=== PATIENT | female | born 1980 | race Caucasian/White ===

== ENCOUNTER 2016-11-23 19:51 | Emergency (ER) | payer OTHER ==
[2016-11-23] MEDS ORDERED: Reglan 10 MG/2 ML IV ONE (20:18)
[2016-11-23] MEDS ORDERED: BENADRYL 50 MG/ML IV ONE ×2 (20:18→21:38)
[2016-11-23] MEDS ORDERED: Sodium Chloride 0.9% 1000 ML 1,000 ML IV STA (20:18)
[2016-11-23] MEDS ORDERED: TORAdol 30 mg Injection IV ONE (20:18)
[2016-11-23 20:33] LABS: VBG CARBOXYHEMOGLOBIN 5.2 % T HGB (0.0-6.9); VBG HCO3- 27.8 meq/L (22-28); VBG HEMOGLOBIN 14.1; VBG O2 SATURATION 66.7 (95-100); VBG POTASSIUM 3.7 (3.5-5.1); VBG pH 7.38 (7.32-7.42)
[2016-11-23 20:36] LABS: BASOPHIL % 0.6 % (0.0-0.4); Eosinophil % 1.5 % (0.00-5.0); Granulocytes % 67.8 % (36.0-66.0); Lymphocytes % 25.3 % (24.0-44.0); Mean Cell Volume 95.6 fl (78-100); Mean Corpuscular Hemoglobin 32.3 pg (26-32); Mean Platelet Volume 10.2 fl (6-9.5); Monocytes % 4.8 % (0.0-12.0); Platelet Count 261 K/mm3 (150-450); Red Blood Count 4.31 M/mm3 (4.1-5.4); Red Cell Distribution Width 12.6 % (11.5-14.0); White Blood Count 10.7 K/mm3 (4.0-10.5)
[2016-11-23] MEDS ORDERED: Sodium Chloride 0.9% 1000 ML 1,000 ML ONE (20:41)
[2016-11-23] MEDS ORDERED: BENADRYL 50 MG/ML ONE ×2 (20:41→21:43)
[2016-11-23] MEDS ORDERED: TORAdol 30 mg Injection ONE (20:41)
[2016-11-23] MEDS ORDERED: Reglan 10 MG/2 ML ONE (20:41)
[2016-11-23 20:59] LABS: ALKALINE PHOSPHATASE 64 U/L (46-116); ANION GAP 14.6 MEQ/L (5-15); BILIRUBIN,TOTAL 0.2 mg/dL (0.2-1.0); BLOOD UREA NITROGEN 18 mg/dL (9-20); CHLORIDE 104 mEq/L (98-107); Carbon Dioxide 26.5 mEq/L (21-32); Glucose 87 MG/DL (70-110); Potassium 3.8 mEq/L (3.5-5.1); SGOT/AST 52 U/L (15-37); SGPT/ALT 76 U/L (12-78); SODIUM 141 mEq/L (136-145); Total Protein 7.8 gm/dL (6.4-8.2)
[2016-11-23 21:00] LABS: TROPONIN < 0.017 ng/ml (0.000-0.056)
--- NOTE | 2016-11-23 21:31 | ERPHSYRPT ---
- History of Present Illness Time Seen by Provider: 11/23/16 20:08 Source: patient Patient Subjective Stated Complaint: reports migrain headache with blurred vision et photophobia since 2199 yesterday - reports onset left-sided CP since today with nausea and vomiting x a few episodes Triage Nursing Assessment: ambulatory to treatment area - steady gait - moves all extremities with equal strength. alert/oriented - tearful affect. skin flushed/dry - no rash/injury. resps easy - non-labored Physician History: CC: headache Hx: 36 y/o patient. She recently moved here from [place]. She had headache yesterday all over her head. Some visual problems reading her text messages yesterday. Today had some left sided headache which resolved since 2PM. She had some nausea and vomiting today. Around 3PM she had some sharp shooting left chest pains last under 30 seconds. She felt anxious. She had some numbness in the right side of her body which also has resolved. She felt a little confused at home for a while today. She took APAP. Now does not feel bad but her family wanted her to come to ER. She reports prior headaches about twice a year. ALL: None MEds: None Social: smoker LMP 2006 hysterectomy Timing/Duration: yesterday Severity: moderate Allergies/Adverse Reactions: No Known Drug Allergies Allergy (Unverified 11/23/16 20:01) Home Medications: No Reportable Medications [No Reported Medications] 11/23/16 [History] Hx Tetanus, Diphtheria Vaccination/Date Given: No Hx Influenza Vaccination/Date Given: No Hx Pneumococcal Vaccination/Date Given: No Immunizations Up to Date: Yes - Review of Systems Constitutional: No Fever, No Chills Eyes: Vision Changes Ears, Nose, & Throat: No Symptoms Respiratory: No Cough, No Dyspnea Cardiac: Chest Pain (sharp short shooting), No Edema, No Palpitations, No Syncope Abdominal/Gastrointestinal: Nausea, Vomiting, No Abdominal Pain, No Diarrhea Genitourinary Symptoms: No Dysuria Musculoskeletal: No Back Pain, No Neck Pain, No Injury Skin: No Rash Neurological: Headache, Parasthesia (right side resolved), No Focal Weakness All Other Systems: Reviewed and Negative - Past Medical History Pertinent Past Medical History: No (healthy) - Past Surgical History Past Surgical History: Yes Female Surgical History: Hysterectomy - Social History Smoking Status: Never smoker Exposure to second hand smoke: No Drug Use: none Patient Lives Alone: No - Female History Hx Last Menstrual Period: n/a - Nursing Vital Signs Nursing Vital Signs: Initial Vital Signs Temperature 98.8 F Temperature Source Oral Pulse Rate [] 72 Pulse Rate 66 Respiratory Rate 16 Blood Pressure [] 139/73 Pain Intensity 2 - Physical Exam General Appearance: alert Eye Exam: PERRL/EOMI Ears, Nose, Throat Exam: normal ENT inspection, moist mucous membranes Neck Exam: normal inspection, non-tender, supple, No meningismus Respiratory Exam: normal breath sounds, lungs clear Cardiovascular Exam: regular rate/rhythm, No murmur Gastrointestinal/Abdomen Exam: soft, No tenderness, No distention, No mass, No guarding Back Exam: normal inspection, normal range of motion Extremity Exam: normal inspection, normal range of motion Neurologic Exam: alert, oriented x 3, cooperative, content assistant II-XII nml as tested, sensation nml, No motor deficits Skin Exam: warm, dry, No rash SpO2 Interpretation: normal SpO2: 98 Oxygen Delivery: Room Air - Course Nursing assessment & vital signs reviewed: Yes EKG Interpreted by Me: RATE (63), Sinus Rhythm, NORMAL AXIS, NORMAL INTERVALS ( QTc 412), NORMAL QRS, NORMAL ST-T - Radiology Exams cxr X-ray Interpretation: Reviewed by me, Negative - CT Exams head CT Interpretation: Negative, Tele-radiologist Report Ordered Tests: Active Orders 24 hr Category Date Time Status Clean Catch Urine Specimen STAT Care 11/23/16 20:18 Active EKG-ER Only STAT Care 11/23/16 20:18 Completed IV Insertion STAT Care 11/23/16 20:18 Active CHEST 2 VIEWS (PA AND LAT) Stat Exams 11/23/16 20:18 Taken HEAD WITHOUT CONTRAST [CT] Stat Exams 11/23/16 20:19 Taken CBC W DIFF Stat Lab 11/23/16 20:29 Completed CMP Stat Lab 11/23/16 20:29 Completed TROPONIN Stat Lab 11/23/16 20:29 Completed UA Stat Lab 11/23/16 21:47 Completed Urine Triage Profile Stat Lab 11/23/16 21:47 Completed VENOUS BLOOD GAS Urgent Lab 11/23/16 20:29 Completed Medication Summary Generic Name Dose Route Start Last Admin Trade Name Freq PRN Reason Stop Dose Admin Magnesium Sulfate/Dextrose 100 mls @ 100 mls/hr 11/23/16 21:45 11/23/16 21:46 Magnesium 1 Gm / 100 Ml D5w IV 11/23/16 23:44 100 mls/hr Q1H AUBREY Administration Discontinued Medications Generic Name Dose Route Start Last Admin Trade Name Alana PRN Reason Stop Dose Admin Diphenhydramine HCl 25 mg 11/23/16 20:18 11/23/16 21:06 Benadryl 50 Mg/Ml IV 11/23/16 20:19 25 mg STAT ONE Administration Diphenhydramine HCl Confirm 11/23/16 20:41 Benadryl 50 Mg/Ml Administered 11/23/16 20:42 Dose 50 mg .ROUTE .STK-MED ONE Diphenhydramine HCl 25 mg 11/23/16 21:38 11/23/16 21:45 Benadryl 50 Mg/Ml IV 11/23/16 21:39 25 mg STAT ONE Administration Diphenhydramine HCl Confirm 11/23/16 21:43 Benadryl 50 Mg/Ml Administered 11/23/16 21:44 Dose 50 mg .ROUTE .STK-MED ONE Sodium Chloride 1,000 mls @ 999 mls/hr 11/23/16 20:18 11/23/16 21:10 Sodium Chloride 0.9% 1000 Ml IV 11/23/16 21:18 999 mls/hr .Q1H1M STA Administration Sodium Chloride Confirm 11/23/16 20:41 Sodium Chloride 0.9% 1000 Ml Administered 11/23/16 20:42 Dose 1,000 mls @ ud .ROUTE .STK-MED ONE Magnesium Sulfate/Dextrose Confirm 11/23/16 21:44 Magnesium 1 Gm / 100 Ml D5w Administered 11/23/16 21:45 Dose 200 mls @ ud IV .STK-MED ONE Ketorolac Tromethamine 30 mg 11/23/16 20:18 11/23/16 21:04 Toradol 30 Mg Injection IV 11/23/16 20:19 30 mg STAT ONE Administration Ketorolac Tromethamine Confirm 11/23/16 20:41 Toradol 30 Mg Injection Administered 11/23/16 20:42 Dose 30 mg .ROUTE .STK-MED ONE Metoclopramide HCl 10 mg 11/23/16 20:18 11/23/16 21:05 Reglan 10 Mg/2 Ml IV 11/23/16 20:19 10 mg STAT ONE Administration Metoclopramide HCl Confirm 11/23/16 20:41 Reglan 10 Mg/2 Ml Administered 11/23/16 20:42 Dose 10 mg .ROUTE .STK-MED ONE Olanzapine 5 mg 11/23/16 21:38 11/23/16 21:45 Zyprexa Zydis 5 Mg PO 11/23/16 21:39 5 mg STAT ONE Administration Olanzapine Confirm 11/23/16 21:43 Zyprexa Zydis 5 Mg Administered 11/23/16 21:44 Dose 5 mg PO .STK-MED ONE Lab/Rad Data: Laboratory Result Diagrams 11/23/16 20:29 11/23/16 20:29 Laboratory Results 11/23/16 11/23/16 11/23/16 Range/Units 21:47 21:47 20:29 WBC (4.0-10.5) K/mm3 RBC (4.1-5.4) M/mm3 Hgb (12.0-16.0) gm/dl Hct (35-47) % MCV (78-100) fl MCH (26-32) pg MCHC (32-36) g/dl RDW (11.5-14.0) % Plt Count (150-450) K/mm3 MPV (6-9.5) fl Gran % (36.0-66.0) % Lymphocytes % (24.0-44.0) % Monocytes % (0.0-12.0) % Eosinophils % (0.00-5.0) % Basophils % (0.0-0.4) % Basophils # (0-0.4) VBG pH 7.38 (7.32-7.42) VBG pCO2 at Pat Temp 47 (42-55) mm/Hg VBG pO2 at Pat Temp 33 (25-40) mm/Hg VBG HCO3 27.8 (22-28) meq/L VBG O2 Sat (Riaz) 66.7 L (95-100) VBG Base Excess 2.0 (-2.0-2.0) VBG Hemoglobin 14.1 VBG Carboxyhemoglobin 5.2 (0.0-6.9) % T HGB POC Potassium 3.7 (3.5-5.1) Sodium (136-145) mEq/L Potassium (3.5-5.1) mEq/L Chloride (98-107) mEq/L Carbon Dioxide (21-32) mEq/L Anion Gap (5-15) MEQ/L BUN (9-20) mg/dL Creatinine (0.55-1.30) mg/dl Estimated GFR ML/MIN Glucose (70-110) MG/DL Calcium (8.5-10.1) mg/dL Total Bilirubin (0.2-1.0) mg/dL AST (15-37) U/L ALT (12-78) U/L Alkaline Phosphatase (46-116) U/L Troponin I (0.000-0.056) ng/ml Serum Total Protein (6.4-8.2) gm/dL Albumin (3.4-5.0) g/dL Ur Collection Type CLEAN CATCH Urine Color YELLOW (YELLOW) Urine Appearance CLEAR (CLEAR) Urine pH 6.0 (5-6) Ur Specific [place] 1.025 (1.005-1.025) Urine Protein NEGATIVE (Negative) Urine Glucose (UA) NEGATIVE (NEGATIVE) mg/dL Urine Ketones NEGATIVE (NEGATIVE) Urine Nitrite NEGATIVE (NEGATIVE) Urine Bilirubin NEGATIVE (NEGATIVE) Urine Urobilinogen 0.2 (0-1) mg/dL Urine WBC (Auto) NEGATIVE (NEGATIVE) Urine RBC (Auto) NEGATIVE (0-5) Louis/ul Urine Opiates Level NEG. (NEGATIVE) Ur Methadone NEG. (NEGATIVE) Urine Barbiturates NEG. (NEGATIVE) Ur Phencyclidine (PCP) NEG. (NEGATIVE) Urine Amphetamine NEG. (NEGATIVE) U Benzodiazepine Level NEG. (NEGATIVE) Urine Cocaine NEG. (NEGATIVE) Urine Marijuana (THC) NEG. (NEGATIVE) Specimen Received [id number] 11/23/16 11/23/16 Range/Units 20:29 20:29 WBC 10.7 H (4.0-10.5) K/mm3 RBC 4.31 (4.1-5.4) M/mm3 Hgb 13.9 (12.0-16.0) gm/dl Hct 41.2 (35-47) % MCV 95.6 (78-100) fl MCH 32.3 H (26-32) pg MCHC 33.7 (32-36) g/dl RDW 12.6 (11.5-14.0) % Plt Count 261 (150-450) K/mm3 MPV 10.2 H (6-9.5) fl Gran % 67.8 H (36.0-66.0) % Lymphocytes % 25.3 (24.0-44.0) % Monocytes % 4.8 (0.0-12.0) % Eosinophils % 1.5 (0.00-5.0) % Basophils % 0.6 (0.0-0.4) % Basophils # 0.06 (0-0.4) VBG pH (7.32-7.42) VBG pCO2 at Pat Temp (42-55) mm/Hg VBG pO2 at Pat Temp (25-40) mm/Hg VBG HCO3 (22-28) meq/L VBG O2 Sat (Riaz) (95-100) VBG Base Excess (-2.0-2.0) VBG Hemoglobin VBG Carboxyhemoglobin (0.0-6.9) % T HGB POC Potassium (3.5-5.1) Sodium 141 (136-145) mEq/L Potassium 3.8 (3.5-5.1) mEq/L Chloride 104 (98-107) mEq/L Carbon Dioxide 26.5 (21-32) mEq/L Anion Gap 14.6 (5-15) MEQ/L BUN 18 (9-20) mg/dL Creatinine 0.72 (0.55-1.30) mg/dl Estimated GFR > 60 ML/MIN Glucose 87 (70-110) MG/DL Calcium 9.2 (8.5-10.1) mg/dL Total Bilirubin 0.2 (0.2-1.0) mg/dL AST 52 H (15-37) U/L ALT 76 (12-78) U/L Alkaline Phosphatase 64 (46-116) U/L Troponin I < 0.017 (0.000-0.056) ng/ml Serum Total Protein 7.8 (6.4-8.2) gm/dL Albumin 4.0 (3.4-5.0) g/dL Ur Collection Type Urine Color (YELLOW) Urine Appearance (CLEAR) Urine pH (5-6) Ur Specific [place] (1.005-1.025) Urine Protein (Negative) Urine Glucose (UA) (NEGATIVE) mg/dL Urine Ketones (NEGATIVE) Urine Nitrite (NEGATIVE) Urine Bilirubin (NEGATIVE) Urine Urobilinogen (0-1) mg/dL Urine WBC (Auto) (NEGATIVE) Urine RBC (Auto) (0-5) Louis/ul Urine Opiates Level (NEGATIVE) Ur Methadone (NEGATIVE) Urine Barbiturates (NEGATIVE) Ur Phencyclidine (PCP) (NEGATIVE) Urine Amphetamine (NEGATIVE) U Benzodiazepine Level (NEGATIVE) Urine Cocaine (NEGATIVE) Urine Marijuana (THC) (NEGATIVE) Specimen Received - Progress Progress Note: 11/23/16 21:35 She was medicated. Labs so far and CT and cxr all reassuring. She is lying in the bed with a man and has had some chips. Will give addl meds and check urine. 11/23/16 22:29 Headache improved with mag sulfate, benadryl, and zydis. Neck supple. No fever. She has had prior headaches. Taking po fluids. BP improved. She is not interested in LP. Will release with instructions. Counseled pt/family regarding: lab results, diagnosis, need for follow-up, rad results - Departure Time of Disposition: 22:30 Departure Disposition: Home Clinical Impression: Headache Condition: Stable Critical Care Time: No Referrals: DOCTOR,NO FAMILY [NON-STAFF PHY W/O PRIVILEGES] - Instructions: Headache Additional Instructions: HEADACHE 1. After discharge from the emergency department, you should rest at home in a cool, dark, quiet place for 12-24 hours. 2. If any of the following signs or symptoms are noticed, you should be re- evaluated right away: A. Visual changes B. Stiff Neck C. Change in quality or location of pain D. Fever E. Recurrent vomiting 3. If pain medications were prescribed or given, they may cause drowsiness. No driving tonite and stay with family. Follow up with a family doctor next week. Return for fever, confusion, concerns.
[2016-11-23] MEDS ORDERED: Zyprexa Zydis 5 MG PO ONE ×2 (21:38→21:43)
[2016-11-23] MEDS ORDERED: Magnesium 1 Gm / 100 Ml D5W*** 200 ML IV ONE (21:44)
[2016-11-23] MEDS: Magnesium 1 Gm / 100 Ml D5W*** 100 ML IV SCH ×2 (21:45→21:46)
[2016-11-23 21:48] LABS: COMPLETE URINE MICROSCOPIC? NO; Collection Type CLEAN CATCH
[2016-11-23 22:27] VITALS: BP 139/73; PULSE 66
[2016-11-23 22:31] VITALS: O2SAT 98
--- NOTE | 2016-11-23 22:44 | XRAY ---
Indication: Chest pain. Comparison: None PA/lateral chest demonstrates normal heart, lungs, and bony thorax.
--- NOTE | 2016-11-24 07:20 | XRAY ---
Indication: Migraine headache, blurred vision, photophobia, nausea, and vomiting. Multiple contiguous axial images obtained through the head without contrast. Comparison: None Normal appearing brain parenchyma, ventricles, and bony calvarium. Visualized paranasal sinuses and mastoid air cells are pneumatized and clear. Impression: Normal CT head without contrast exam. Comment: Preliminary interpretation was made by [facility]. No discrepancy. CTDI 69.79
== END 2016-11-23 22:50 | disposition home or self-care (01) ==
LOC: ED 19:51
DX: R51 Headache (principal); R11.2 Nausea with vomiting, unspecified; R07.9 Chest pain, unspecified
CPT/HCPCS: 36000; 36415; 70450; 71020; 80053; 80307; 81002; 82805; 84484; 85025; 93005; 93041; 96360; 96365; 96374; 96375; 96376; 99285; J1200; J1885; J3475

== ENCOUNTER 2016-12-25 08:11 | Inpatient (IN) | payer OTHER ==
[2016-12-25] MEDS ORDERED: Sodium Chloride 0.9% 1000 ML 1,000 ML IV STA ×2 (08:40→09:37)
[2016-12-25] MEDS ORDERED: Hydromorphone 1 mg/ml Ampule IV ONE ×2 (08:40→09:37)
[2016-12-25] MEDS ORDERED: BENADRYL 50 MG/ML IV ONE ×2 (08:40→09:37)
[2016-12-25] MEDS ORDERED: Zofran 4 MG/2 ML VIAL IV ONE (08:44)
--- NOTE | 2016-12-25 08:47 | ERPHSYRPT ---
- History of Present Illness Time Seen by Provider: 12/25/16 08:36 Source: patient, family (boyfriend) Patient Subjective Stated Complaint: right flank pain since yesterday Triage Nursing Assessment: ambulated to room per self, crying and holding back. skin w/d, color normal, resp easy. states has burning with urination Physician History: CC: left flank pain HX: 36 y/o patient with hx of pyelonephritis. She has left flank pain, rather severe. Nausea. Pain since yesterday. Some dark and urine frequency. No hx of stone disease. Prior hysterectomy. Low grade fever. Pain is severe. Timing/Duration: yesterday Severity: severe Allergies/Adverse Reactions: No Known Drug Allergies Allergy (Verified 12/25/16 08:38) Home Medications: No Reportable Medications [No Reported Medications] 11/23/16 [History] Hx Tetanus, Diphtheria Vaccination/Date Given: No Hx Influenza Vaccination/Date Given: No Hx Pneumococcal Vaccination/Date Given: No - Review of Systems Constitutional: Fever, Malaise Eyes: No Symptoms Ears, Nose, & Throat: No Symptoms Respiratory: No Symptoms Cardiac: No Chest Pain Abdominal/Gastrointestinal: Nausea, No Abdominal Pain Genitourinary Symptoms: Dysuria, Frequency, No Skin: No Rash Neurological: No Headache All Other Systems: Reviewed and Negative - Past Medical History Pertinent Past Medical History: Yes (healthy) Female Reproductive Disorders: Endometriosis, Menstrual Problems - Past Surgical History Past Surgical History: Yes Gastrointestinal: Other Female Surgical History: Hysterectomy Other Surgical History: "colon" surgery after endometrosis surgery - Social History Smoking Status: Current every day smoker How long have you smoked: 20 Exposure to second hand smoke: Yes Drug Use: none Patient Lives Alone: No - Nursing Vital Signs Nursing Vital Signs: Initial Vital Signs Temperature 99.6 F Temperature Source Oral Pulse Rate 105 Respiratory Rate 20 Blood Pressure [Right Arm] 128/67 Pain Intensity 10 - Physical Exam General Appearance: alert, other (uncomfortable appearing) Eye Exam: PERRL/EOMI Ears, Nose, Throat Exam: normal ENT inspection, moist mucous membranes Neck Exam: normal inspection, non-tender, supple Respiratory Exam: normal breath sounds, lungs clear Cardiovascular Exam: regular rate/rhythm Gastrointestinal/Abdomen Exam: soft, No tenderness, No distention, No mass, No guarding Back Exam: CVA tenderness (left) Extremity Exam: normal inspection, normal range of motion Neurologic Exam: alert, oriented x 3, cooperative, sensation nml, No motor deficits Skin Exam: warm, dry, No rash SpO2 Interpretation: normal SpO2: 97 Oxygen Delivery: Room Air - Course Nursing assessment & vital signs reviewed: Yes - Radiology Ultrasound Exam renal Ultrasound: tele radiology report (negative kidneys, hepatic angioma) Ordered Tests: Active Orders 24 hr Category Date Time Status Clean Catch Urine Specimen STAT Care 12/25/16 08:36 Active IV Insertion STAT Care 12/25/16 08:40 Active KIDNEY [US] Stat Exams 12/25/16 08:42 Completed BLOOD CULTURE Stat Lab 12/25/16 08:54 Received BMP Stat Lab 12/25/16 08:54 Received CBC W DIFF Stat Lab 12/25/16 08:54 Completed CULTURE,URINE Stat Lab 12/25/16 08:15 Received Lactic Acid Urgent Lab 12/25/16 08:40 Completed UA W/ MICROSCOPIC Stat Lab 12/25/16 08:15 Completed Medication Summary Generic Name Dose Route Start Last Admin Trade Name Freq PRN Reason Stop Dose Admin Aztreonam 100 mls @ 100 mls/hr 12/25/16 09:00 Azactam 1 Gm/100 Ml D5w IV 12/25/16 09:59 STAT ONE Sodium Chloride 1,000 mls @ 999 mls/hr 12/25/16 09:37 Sodium Chloride 0.9% 1000 Ml IV 12/25/16 10:37 .Q1H1M STA Discontinued Medications Generic Name Dose Route Start Last Admin Trade Name Freq PRN Reason Stop Dose Admin Diphenhydramine HCl 25 mg 12/25/16 08:40 12/25/16 09:20 Benadryl 50 Mg/Ml IV 12/25/16 08:41 25 mg STAT ONE Administration Diphenhydramine HCl Confirm 12/25/16 09:13 Benadryl 50 Mg/Ml Administered 12/25/16 09:14 Dose 50 mg .ROUTE .STK-MED ONE Diphenhydramine HCl 25 mg 12/25/16 09:37 Benadryl 50 Mg/Ml IV 12/25/16 09:38 STAT ONE Diphenhydramine HCl Confirm 12/25/16 09:43 Benadryl 50 Mg/Ml Administered 12/25/16 09:44 Dose 50 mg .ROUTE .STK-MED ONE Hydromorphone HCl 1 mg 12/25/16 08:40 12/25/16 09:19 Hydromorphone 1 Mg/Ml Ampule IV 12/25/16 08:41 1 mg STAT ONE Administration Hydromorphone HCl Confirm 12/25/16 09:14 Hydromorphone 1 Mg/Ml Ampule Administered 12/25/16 09:15 Dose 1 mg .ROUTE .STK-MED ONE Hydromorphone HCl 1 mg 12/25/16 09:37 Hydromorphone 1 Mg/Ml Ampule IV 12/25/16 09:38 STAT ONE Hydromorphone HCl Confirm 12/25/16 09:44 Hydromorphone 1 Mg/Ml Ampule Administered 12/25/16 09:45 Dose 1 mg .ROUTE .STK-MED ONE Sodium Chloride 1,000 mls @ 999 mls/hr 12/25/16 08:40 12/25/16 09:19 Sodium Chloride 0.9% 1000 Ml IV 12/25/16 09:40 999 mls/hr .Q1H1M STA Administration Ceftriaxone Sodium/Dextrose 50 mls @ 100 mls/hr 12/25/16 09:00 12/25/16 09:20 Rocephin 1 Gm-D5w 50 Ml Bag IV 12/25/16 09:29 100 mls/hr STAT ONE Administration Sodium Chloride Confirm 12/25/16 09:14 Sodium Chloride 0.9% 1000 Ml Administered 12/25/16 09:15 Dose 1,000 mls @ ud .ROUTE .STK-MED ONE Ceftriaxone Sodium/Dextrose Confirm 12/25/16 09:14 Rocephin 1 Gm-D5w 50 Ml Bag Administered 12/25/16 09:15 Dose 50 mls @ ud IV .STK-MED ONE Ondansetron HCl 4 mg 12/25/16 08:44 12/25/16 09:20 Zofran 4 Mg/2 Ml Vial IV 12/25/16 08:45 4 mg STAT ONE Administration Ondansetron HCl Confirm 12/25/16 09:13 Zofran 4 Mg/2 Ml Vial Administered 12/25/16 09:14 Dose 4 mg .ROUTE .STK-MED ONE Lab/Rad Data: Laboratory Result Diagrams 12/25/16 08:54 Laboratory Results 12/25/16 12/25/16 12/25/16 Range/Units 08:54 08:40 08:15 WBC 22.8 H (4.0-10.5) K/mm3 RBC 4.72 (4.1-5.4) M/mm3 Hgb 15.2 (12.0-16.0) gm/dl Hct 44.1 (35-47) % MCV 93.4 (78-100) fl MCH 32.2 H (26-32) pg MCHC 34.5 (32-36) g/dl RDW 12.6 (11.5-14.0) % Plt Count 278 (150-450) K/mm3 MPV 10.2 H (6-9.5) fl Gran % 87.2 H (36.0-66.0) % Lymphocytes % 7.0 L (24.0-44.0) % Monocytes % 5.4 (0.0-12.0) % Eosinophils % 0.2 (0.00-5.0) % Basophils % 0.2 (0.0-0.4) % Basophils # 0.04 (0-0.4) Lactic Acid 1.5 (0.4-2.0) Ur Collection Type CCMS Urine Color YELLOW (YELLOW) Urine Appearance CLOUDY (CLEAR) Urine pH 6.0 (5-6) Ur Specific [place] 1.015 (1.005-1.025) Urine Protein 100 (Negative) Urine Glucose (UA) NEGATIVE (NEGATIVE) mg/dL Urine Ketones SMALL-15 (NEGATIVE) Urine Nitrite POSITIVE (NEGATIVE) Urine Bilirubin NEGATIVE (NEGATIVE) Urine Urobilinogen 0.2 (0-1) mg/dL Urine WBC (Auto) LARGE (NEGATIVE) Urine RBC (Auto) MODERATE (0-5) Louis/ul Urine Microscopic RBC 15-25 (0-2) /HPF Urine Microscopic WBC >100 (0-5) /HPF Ur Epithelial Cells FEW (FEW) /HPF Urine Bacteria MANY (NEGATIVE) /HPF Specimen Received 0815 12/25/16 - Progress Progress Note: 12/25/16 09:49 The patient has quite a bit of pain. Creat pending as send out machine down. Cultures sent. IVF given. Rocephin and azactam given. Called Dr Bolton (oc) for admission. Sonogram shows no sign of stone disease of abscess. Discussed with .: Hoang Will see patient in: hospital (observation) Counseled pt/family regarding: lab results, diagnosis, need for follow-up, rad results - Departure Time of Disposition: 09:54 Departure Disposition: Observation Clinical Impression: Acute pyelonephritis Condition: Fair Critical Care Time: No
[2016-12-25 08:52] LABS: Collection Type CCMS
[2016-12-25 08:53] LABS: COMPLETE URINE MICROSCOPIC? YES
[2016-12-25] MEDS ORDERED: ROCEPHIN 1 Gm-D5w 50 ml Bag** 50 ML IV ONE ×2 (09:00→09:14)
[2016-12-25] MEDS ORDERED: Azactam 1 GM/100 ML D5W 100 ML IV ONE (09:00)
[2016-12-25 09:05] LABS: BASOPHIL % 0.2 % (0.0-0.4); Eosinophil % 0.2 % (0.00-5.0); Granulocytes % 87.2 % (36.0-66.0); Mean Cell Volume 93.4 fl (78-100); Mean Corpuscular Hemoglobin 32.2 pg (26-32); Mean Platelet Volume 10.2 fl (6-9.5); Monocytes % 5.4 % (0.0-12.0); Platelet Count 278 K/mm3 (150-450); Red Blood Count 4.72 M/mm3 (4.1-5.4); Red Cell Distribution Width 12.6 % (11.5-14.0); White Blood Count 22.8 K/mm3 (4.0-10.5)
[2016-12-25] MEDS ORDERED: Zofran 4 MG/2 ML VIAL ONE (09:13)
[2016-12-25] MEDS ORDERED: BENADRYL 50 MG/ML ONE ×2 (09:13→09:43)
[2016-12-25] MEDS ORDERED: Hydromorphone 1 mg/ml Ampule ONE ×2 (09:14→09:44)
[2016-12-25] MEDS ORDERED: Sodium Chloride 0.9% 1000 ML 1,000 ML ONE ×2 (09:14→10:28)
[2016-12-25 09:38] LABS: Bacteria MANY /HPF (NEGATIVE); Epithelial Cells FEW /HPF (FEW); WBC >100 /HPF (0-5)
--- NOTE | 2016-12-25 09:42 | XRAY ---
Indication: Left flank pain. Two-dimensional renal sonogram performed. Comparison: None Both kidneys normal in reniform shape with normal color perfusion. Right kidney measures 12.1 x 5.1 x 6.2 cm and the left measures 11.3 x 6.3 x 5.5 cm. No suspicious renal mass, hydronephrosis, or perinephric fluid. Images of the urinary bladder unremarkable. Normal right ureteral jet. Left ureteral jet not seen within the allotted exam time. In the posterior right lobe of the liver, there is homogeneous echogenic mass measuring 2.6 cm in greatest dimension favoring hemangioma. Impression: Negative renal sonogram. Incidental hepatic hemangioma.
[2016-12-25] MEDS ORDERED: TYLENOL 325 MG PO PRN (10:58)
[2016-12-25] MEDS: Dextrose 5% -0.45 NaCl 1000 ML 1,000 ML IV SCH (12:30)
[2016-12-25] MEDS: DILAUDID 2 MG INJECTION IV PRN ×3 (13:14→22:12)
[2016-12-25] MEDS: Nicoderm CQ 21 MG TOP SCH (13:14)
--- NOTE | 2016-12-25 13:33 | HP ---
HISTORY OF PRESENT ILLNESS: This is a 36 year-old patient who presented to the emergency department. She reported that she started feeling bad yesterday with aching in her left kidney. She reports that she took Azo but the pain got worse and it was hard for her to move. She reports a history of kidney infections including pyelonephritis. She reports that she has been hospitalized at [facility] in [place], [place] but she thinks this was back in 2008. She also reports being hospitalized in [place] in 2010 but she cannot remember what hospital she was at. She reports that her teeth were chattering and she was sweating but she did not have a thermometer at home to check her temperature. She had some nausea but no vomiting. She also had left upper quadrant pain. She reports that she is feeling better since coming into the hospital. REVIEW OF SYSTEMS: She denies cough, denies rhinorrhea. No rashes. No dizziness. No headache. PAST MEDICAL HISTORY: She reports a history of endometriosis requiring multiple surgeries. PAST SURGICAL HISTORY: She had laser surgery for endometriosis when she was a teenager. She had a benign tumor removed from her armpit. She had a section. She had uterus rupture and then hysterectomy, left ovary removed. She reports there were complications from this surgery and part of her intestine and bladder had to be removed. She also reports she had an appendectomy. MEDICATIONS: [id number] Azo. ALLERGIES: NKDA. SOCIAL HISTORY: She lives with her boyfriend who is a vinyl welder and fabricator and travels with him. She has a son that stays with them as well. She reports smoking one-half to one pack per day of cigarettes and wanting to quit. She occasionally drinks alcohol approximately one drink per day but not every day. She denies any history of alcohol withdrawal. She reports occasional use of marijuana. She reports a history of meth use but not recently. She denies any injected IV drugs, any heroin or cocaine. FAMILY HISTORY: Her mother is living and has a heart murmur. Father is living and has lung disease that requires injections but she is unsure of the exact name of this. PHYSICAL EXAMINATION: VITAL SIGNS: Temperature current 98.8F, temperature max 99.6F, heart rate 60 to 105, respiratory rate 16 to 20, blood pressure 119 to 130 over 61 to 67. Oxygen saturation 93 to 97% on room air. GENERAL: The patient is lying in bed. Teeth chattering and chilling. She is alert and talkative. CVS: She has a regular rate and rhythm. No murmurs, gallops or rubs. CHEST: Clear to auscultation bilaterally. ABDOMEN: She has mild left upper quadrant tenderness with no guarding, no rigidity and normal bowel sounds. She has left costovertebral angle tenderness. No costovertebral angle tenderness on the right. She has a well healed midline scar from just above her umbilicus down towards the pubic area and another scar horizontal from her section. EXTREMITIES: No clubbing, cyanosis or edema. SKIN: Warm, dry and intact. LABORATORY DATA AND TESTS: Her white blood cell count was 22,800 with 87% granulocytes, 7% lymphs. Lactic acid 1.5. UA with greater than 100 white blood cells, 15 to 25 red blood cells and many bacteria. She had small ketones and positive nitrite. Urine culture and blood culture are in lab. BMP was sent out to [facility] and it was not back until after noon. Her creatinine was 0.8, sodium 134, chloride 96. She had a renal ultrasound that was read as negative by the [id number] with incidental hepatic hemangioma. ASSESSMENT AND PLAN: 1) ACUTE LEFT PYELONEPHRITIS: The patient was initially started on ceftriaxone by the emergency room doctor. The patient reports that in the past her urine cultures have grown resistant organisms which make me more concerned along with the fact that she is still chilling so I decided to change her to Meropenem and discontinue aztreonam and ceftriaxone after discussion with the clinical pharmacist, Terrence. Will continue with close monitoring and recheck CBC in the morning and continue with IV fluids. The patient was able to eat all of her lunch without any problems. 2) TOBACCO ABUSE: The patient was counseled that he needs to quit and she was given a nicotine patch while she was here. 3) ILLICIT DRUG USE: The patient was questioned twice and denied any IV drug use as I told her this could change her treatment.
[2016-12-25] MEDS ORDERED: Azactam 1 GM/100 ML D5W 100 ML IV SCH (14:00)
[2016-12-25] MEDS: Zofran 4 MG/2 ML VIAL IV PRN (14:30)
[2016-12-25] MEDS: MERREM 500MG 500 MG in Sodium Chloride 100ML MINI-BAG PLUS 100 ML IV SCH ×2 (14:30→22:14)
[2016-12-26] MEDS: Dextrose 5% -0.45 NaCl 1000 ML 1,000 ML IV SCH ×3 (00:07→22:10)
[2016-12-26] MEDS: DILAUDID 2 MG INJECTION IV PRN ×5 (03:24→19:41)
[2016-12-26] MEDS: MERREM 500MG 500 MG in Sodium Chloride 100ML MINI-BAG PLUS 100 ML IV SCH ×3 (05:45→21:57)
[2016-12-26 05:49] LABS: Mean Cell Volume 96.6 fl (78-100); Mean Platelet Volume 10.8 fl (6-9.5); Platelet Count 201 K/mm3 (150-450); Red Blood Count 3.77 M/mm3 (4.1-5.4); Red Cell Distribution Width 12.8 % (11.5-14.0); White Blood Count 21.8 K/mm3 (4.0-10.5)
[2016-12-26 05:59] LABS: ANION GAP 11.4 MEQ/L (5-15); BLOOD UREA NITROGEN 5 mg/dL (9-20); CHLORIDE 107 mEq/L (98-107); Carbon Dioxide 24.3 mEq/L (21-32); Glucose 128 MG/DL (70-110); Potassium 3.4 mEq/L (3.5-5.1); SODIUM 139 mEq/L (136-145)
[2016-12-26 06:00] LABS: Mean Corpuscular Hemoglobin 32.3 pg (26-32)
--- NOTE | 2016-12-26 08:57 | PCM.NOTE ---
Date and Time: 12/26/16 0852 Subjective Assessment: She reports that her pain seemed to get worse again around 2 am and is still located around her left flank and to her left upper quadrant. She is urinating ok. She hasn't had much appetite because of the pain. She denies diarrhea and has had some constipation. She has not had an appetite. - Review of Systems Constitutional: Fatigue Eyes: No Symptoms Ears, Nose, & Throat: No Symptoms Respiratory: No Symptoms Cardiac: No Symptoms Abdominal/Gastrointestinal: Abdominal Pain, Constipation, Appetite Changes, No Vomiting, No Diarrhea Genitourinary Symptoms: No Symptoms Musculoskeletal: No Symptoms Skin: No Symptoms Objective Exam General Appearance: mild distress, other (tearful) Neurologic Exam: alert, cooperative Skin Exam: normal color, warm, dry, No rash Respiratory Exam: normal breath sounds, No crackles/rales, No rhonchi, No wheezing Cardiovascular Exam: regular rate/rhythm, normal heart sounds, No murmur, No friction rub, No gallop Gastrointestinal/Abdomen Exam: soft, tenderness, other (mild left upper quadrant tenderness. + left costovertebral angle tenderness) Extremity Exam: normal inspection, other (no c/c/e) OBJECTIVE DATA Vital Signs: Vital Signs - 24 hr Temp Pulse Resp BP Pulse Ox 12/26/16 07:17 99.0 F 80 24 135/59 97 12/26/16 04:00 99.2 F 83 17 109/57 96 12/25/16 23:47 98.8 F 82 18 94/54 97 12/25/16 19:48 99.7 F 73 16 104/56 95 12/25/16 15:49 99.7 F 120 H 18 128/62 92 L 12/25/16 11:25 98.8 F 89 16 119/64 97 12/25/16 10:55 97.6 F 60 130/61 12/25/16 10:50 97.6 F 60 18 130/61 93 L 12/25/16 09:55 97 12/25/16 09:35 92 H 18 130/67 97 Pain Assessment - Last Documented Pain Intensity 9 Pain Scale Used 0-10 Pain Scale Intake and Output: Intake & Output 12/24/16 12/25/16 12/26/16 12/27/16 06:59 06:59 06:59 06:59 Intake Total 3447 Output Total 500 Balance 2947 Weight 73.89 kg Lab Results: Lab Results-Last 24 Hours 12/26/16 12/26/16 Range/Units 05:20 05:20 WBC 21.8 H (4.0-10.5) K/mm3 RBC 3.77 L (4.1-5.4) M/mm3 Hgb 12.2 (12.0-16.0) gm/dl Hct 36.4 (35-47) % MCV 96.6 (78-100) fl MCH 32.3 H (26-32) pg MCHC 33.5 (32-36) g/dl RDW 12.8 (11.5-14.0) % Plt Count 201 (150-450) K/mm3 MPV 10.8 H (6-9.5) fl Sodium 139 (136-145) mEq/L Potassium 3.4 L (3.5-5.1) mEq/L Chloride 107 (98-107) mEq/L Carbon Dioxide 24.3 (21-32) mEq/L Anion Gap 11.4 (5-15) MEQ/L BUN 5 L (9-20) mg/dL Creatinine 0.74 (0.55-1.30) mg/dl Estimated GFR > 60 ML/MIN Glucose 128 H (70-110) MG/DL Calcium 8.1 L (8.5-10.1) mg/dL Radiology Exams: Radiology Procedures Category Date Time Status ABDOMEN AND PELVIS W&WO CONTRA [CT] Stat Exams 12/26/16 08:50 Ordered Assessment/Plan (1) Acute pyelonephritis Current Visit: Yes Status: Acute Assessment & Plan: Continue meropenem. Check CT of abd/pelvis with IV contrast. Checking serum test to make sure this is neg but patient did report having had a hysterectomy. Check CBC again in AM. Continue with IV fluids and pain control. We are trying to get records from outside hospitals with old culture results and her urine and blood cultures are pending with no growth to date. Code(s): N10 - ACUTE PYELONEPHRITIS (2) Tobacco abuse Current Visit: Yes Status: Acute Code(s): Z72.0 - TOBACCO USE (3) Illicit drug use Current Visit: Yes Status: Acute Code(s): F19.90 - OTHER PSYCHOACTIVE SUBSTANCE USE, UNSPECIFIED, UNCOMPLICATED
[2016-12-26] MEDS: Colace 100 MG PO SCH ×2 (09:38→21:57)
[2016-12-26] MEDS ORDERED: ROCEPHIN 1 Gm-D5w 50 ml Bag** 50 ML IV SCH (10:00)
[2016-12-26] MEDS ORDERED: PNEUMOVAX 23 IM ONE (10:00)
[2016-12-26] MEDS: Nicoderm CQ 21 MG TOP SCH (11:38)
[2016-12-26] MEDS: Zofran 4 MG/2 ML VIAL IV PRN (12:01)
--- NOTE | 2016-12-26 12:14 | XRAY ---
Indication: Pyelonephritis. Left kidney pain and dysuria. Multiple contiguous axial images obtained through the abdomen and pelvis prior to and following 80 cc Isovue 370 contrast. Oral contrast also given. Comparison: None Lung bases are clear. Heart is not enlarged. Noncontrasted images through the abdomen are negative for pathologic visceral calcifications/calculi. Contrasted stomach and bowel loops appear nonobstructed with mild scattered colonic fecal debris throughout. Distal small bowel resection at the level of the pelvis intact. Previous reported appendectomy and hysterectomy. No free fluid/air. Postcontrast images demonstrates normal visceral enhancement and renal excretion. Minimal left perinephric stranding consistent with known pyelonephritis. No suspicious renal mass, hydronephrosis, or perinephric fluid. There are 2 rounded hypodensities in the right lobe of the liver, largest measuring 2.5 cm, that fill in on delayed imaging favoring hemangiomas. Remaining liver, gallbladder, pancreas, spleen, adrenal glands, kidneys, ureters, and bladder appear unremarkable. Aorta is normal in course and caliber without AAA. Several centimeter/subcentimeter periaortic nodes, none pathologically enlarged. Osseous structures intact. Impression: 1. Negative for pathologic visceral calcifications/calculi. 2. Left perinephric stranding consistent with known pyelonephritis. No renal mass, hydronephrosis, or perinephric fluid. 3. Mild fecal stasis without obstruction. 4. Incidental hepatic hemangiomas. CT DI 22.21
[2016-12-26] MEDS ORDERED: Klor Con 10 MEQ PO ONE (13:03)
[2016-12-27] MEDS: DILAUDID 2 MG INJECTION IV PRN ×3 (00:10→08:37)
[2016-12-27] MEDS: Zofran 4 MG/2 ML VIAL IV PRN ×3 (03:29→17:48)
[2016-12-27 05:36] LABS: BASOPHIL % 0.2 % (0.0-0.4); Granulocytes % 82.8 % (36.0-66.0); Mean Corpuscular Hemoglobin 32.1 pg (26-32); Mean Platelet Volume 10.3 fl (6-9.5); Platelet Count 192 K/mm3 (150-450); Red Blood Count 3.64 M/mm3 (4.1-5.4); Red Cell Distribution Width 12.6 % (11.5-14.0); White Blood Count 11.1 K/mm3 (4.0-10.5)
[2016-12-27] MEDS: MERREM 500MG 500 MG in Sodium Chloride 100ML MINI-BAG PLUS 100 ML IV SCH ×3 (05:41→21:58)
[2016-12-27 05:53] LABS: ANION GAP 12.3 MEQ/L (5-15); BLOOD UREA NITROGEN 3 mg/dL (9-20); CHLORIDE 109 mEq/L (98-107); Carbon Dioxide 24.1 mEq/L (21-32); Glucose 109 MG/DL (70-110); Potassium 3.7 mEq/L (3.5-5.1); SODIUM 142 mEq/L (136-145)
[2016-12-27] MEDS: Colace 100 MG PO SCH ×2 (08:38→21:58)
--- NOTE | 2016-12-27 09:15 | PCM.NOTE ---
Date and Time: 12/27/16909 Subjective Assessment: She continues to have left flank pain that is worse when she moves. She denies any abdominal pain today or any dysuria. She reports some nausea and vomited this AM when she went to the bathroom. - Review of Systems Constitutional: Chills Eyes: No Symptoms Ears, Nose, & Throat: No Symptoms Respiratory: No Symptoms Cardiac: No Symptoms Abdominal/Gastrointestinal: Nausea, Vomiting, Other (left flank pain.) Musculoskeletal: No Symptoms Skin: No Symptoms Psychological: Emotional Lability, Other (States she is sad because she is still having pain.) Objective Exam General Appearance: mild distress, other (tearful) Neurologic Exam: alert, cooperative Skin Exam: normal color, warm, dry, No rash Respiratory Exam: normal breath sounds, lungs clear, No crackles/rales, No rhonchi, No wheezing Cardiovascular Exam: regular rate/rhythm, normal heart sounds, No murmur, No friction rub, No gallop Gastrointestinal/Abdomen Exam: soft, normal bowel sounds, other (+ left costovertebral angle tenderness and right costovertebral angle tenderness), No tenderness, No distention, No mass Extremity Exam: normal inspection, other (no c/c/e) OBJECTIVE DATA Vital Signs: Vital Signs - 24 hr Temp Pulse Resp BP Pulse Ox 12/27/16 07:11 98 F 66 22 116/72 96 12/27/16 04:00 99.2 F 81 17 108/67 95 12/26/16 23:59 98.8 F 84 20 117/72 97 12/26/16 20:00 99.6 F 88 14 129/67 98 12/26/16 16:00 99.0 F 94 H 22 123/76 97 12/26/16 11:43 98.2 F 94 H 22 122/70 98 Pain Assessment - Last Documented Pain Intensity 2 Pain Scale Used 0-10 Pain Scale Intake and Output: Intake & Output 12/25/16 12/26/16 12/27/16 12/28/16 06:59 06:59 06:59 06:59 Intake Total 4903 Output Total 3400 Balance 1503 Lab Results: Lab Results-Last 24 Hours 12/27/16 12/27/16 Range/Units 05:25 05:25 WBC 11.1 H (4.0-10.5) K/mm3 RBC 3.64 L (4.1-5.4) M/mm3 Hgb 11.7 L (12.0-16.0) gm/dl Hct 35.3 (35-47) % MCV 97.0 (78-100) fl MCH 32.1 H (26-32) pg MCHC 33.1 (32-36) g/dl RDW 12.6 (11.5-14.0) % Plt Count 192 (150-450) K/mm3 MPV 10.3 H (6-9.5) fl Gran % 82.8 H (36.0-66.0) % Lymphocytes % 9.0 L (24.0-44.0) % Monocytes % 6.0 (0.0-12.0) % Eosinophils % 2.0 (0.00-5.0) % Basophils % 0.2 (0.0-0.4) % Basophils # 0.02 (0-0.4) Sodium 142 (136-145) mEq/L Potassium 3.7 (3.5-5.1) mEq/L Chloride 109 H (98-107) mEq/L Carbon Dioxide 24.1 (21-32) mEq/L Anion Gap 12.3 (5-15) MEQ/L BUN 3 L (9-20) mg/dL Creatinine 0.67 (0.55-1.30) mg/dl Estimated GFR > 60 ML/MIN Glucose 109 (70-110) MG/DL Calcium 8.1 L (8.5-10.1) mg/dL Assessment/Plan (1) Acute pyelonephritis Current Visit: Yes Status: Acute Assessment & Plan: She continues to have quite a bit of pain. Will stop as needed IV dilaudid and change to a dilaudid [employer] and also schedule tylenol. Continue with meropenem. The outside hospital did not have any old records and the patient thinks the last time she was hospitalized for this was more than 7 years ago. Her urine culture is growing a gram neg jsoe g and ID and sensitivity is pending. Her CT of her abdomen and pelvis did not show any other problems besides the pyelonephritis. Her WBC count is improving. Code(s): N10 - ACUTE PYELONEPHRITIS (2) Tobacco abuse Current Visit: Yes Status: Acute Code(s): Z72.0 - TOBACCO USE (3) Illicit drug use Current Visit: Yes Status: Acute Code(s): F19.90 - OTHER PSYCHOACTIVE SUBSTANCE USE, UNSPECIFIED, UNCOMPLICATED
[2016-12-27] MEDS: DILAUDID 1 MG/1ML PCA IV PRN (11:27)
[2016-12-27] MEDS: Dextrose 5% -0.45 NaCl 1000 ML 1,000 ML IV SCH (11:27)
[2016-12-27] MEDS: Nicoderm CQ 21 MG TOP SCH (13:10)
[2016-12-27] MEDS: TYLENOL 325 MG PO SCH ×3 (17:55→21:57)
[2016-12-28] MEDS: Dextrose 5% -0.45 NaCl 1000 ML 1,000 ML IV SCH ×2 (00:25→17:37)
[2016-12-28] MEDS: TYLENOL 325 MG PO SCH ×6 (03:02→21:55)
[2016-12-28] MEDS: Zofran 4 MG/2 ML VIAL IV PRN (03:05)
[2016-12-28 05:18] LABS: BASOPHIL % 0.2 % (0.0-0.4); Eosinophil % 3.4 % (0.00-5.0); Granulocytes % 70.2 % (36.0-66.0); Lymphocytes % 19.7 % (24.0-44.0); Mean Cell Volume 97.1 fl (78-100); Mean Platelet Volume 10.5 fl (6-9.5); Monocytes % 6.5 % (0.0-12.0); Platelet Count 198 K/mm3 (150-450); Red Blood Count 3.48 M/mm3 (4.1-5.4); Red Cell Distribution Width 12.6 % (11.5-14.0); White Blood Count 6.2 K/mm3 (4.0-10.5)
[2016-12-28] MEDS: MERREM 500MG 500 MG in Sodium Chloride 100ML MINI-BAG PLUS 100 ML IV SCH (05:18)
[2016-12-28 05:19] LABS: Mean Corpuscular Hemoglobin 31.8 pg (26-32)
[2016-12-28 05:49] LABS: BLOOD UREA NITROGEN 3 mg/dL (9-20); CHLORIDE 108 mEq/L (98-107); Carbon Dioxide 27.1 mEq/L (21-32); Glucose 109 MG/DL (70-110); Potassium 3.6 mEq/L (3.5-5.1); SODIUM 142 mEq/L (136-145)
[2016-12-28] MEDS: DILAUDID 1 MG/1ML PCA IV PRN (06:26)
[2016-12-28] MEDS ORDERED: Tums EX 750 MG PO PRN ×2 (08:33→13:10)
[2016-12-28] MEDS: Levofloxacin 250MG Tablet PO SCH (09:18)
[2016-12-28] MEDS: Protonix 40MG Tablet PO SCH (09:19)
[2016-12-28] MEDS: Levofloxacin 500 MG Tablet PO SCH (09:19)
[2016-12-28] MEDS: Colace 100 MG PO SCH ×2 (09:19→21:44)
[2016-12-28] MEDS: Nicoderm CQ 21 MG TOP SCH (11:21)
[2016-12-28] MEDS: NORCO 5/325 MG PO PRN (12:03)
[2016-12-28] MEDS: DILAUDID 2 MG INJECTION IV PRN ×3 (13:37→23:43)
[2016-12-28] MEDS: Phenergan 25 MG INJ IV PRN ×2 (13:38→21:44)
--- NOTE | 2016-12-28 18:43 | PCM.NOTE ---
Date and Time: 12/28/16 1840 Subjective Assessment: Patient was feeling better this AM although she had vomited x 1. She was wanting to try oral pain medication to possibly go home later today but her nurse called me and said she was having pain and continuing to have heartburn despite Tums and a PPI. She denied abdominal pain but was still having some left flank pain. - Review of Systems Constitutional: No Symptoms Eyes: No Symptoms Ears, Nose, & Throat: No Symptoms Respiratory: No Symptoms Cardiac: No Symptoms Abdominal/Gastrointestinal: Nausea, Vomiting, Other (left flank pain) Musculoskeletal: No Symptoms Skin: No Symptoms Objective Exam General Appearance: no apparent distress Neurologic Exam: alert, cooperative Skin Exam: normal color, warm, dry, No rash Respiratory Exam: normal breath sounds, lungs clear, No crackles/rales, No rhonchi, No wheezing Cardiovascular Exam: regular rate/rhythm, normal heart sounds, No friction rub, No gallop, No tachycardia Gastrointestinal/Abdomen Exam: soft, normal bowel sounds, other (+ left costovertebral angle tenderness), No tenderness, No distention, No mass, No guarding Extremity Exam: other (no c/c/e) OBJECTIVE DATA Vital Signs: Vital Signs - 24 hr Temp Pulse Resp BP Pulse Ox 12/28/16 16:00 98.4 F 72 20 135/80 96 12/28/16 12:00 98.2 F 72 21 116/71 96 12/28/16 10:26 96 12/28/16 07:09 98.3 F 67 20 115/72 97 12/28/16 04:00 97.8 F 71 15 120/75 97 12/27/16 23:56 98.8 F 72 16 120/73 98 12/27/16 20:00 98.1 F 74 16 136/73 96 Pain Assessment - Last Documented Pain Intensity 5 Pain Scale Used 0-10 Pain Scale Intake and Output: Intake & Output 12/26/16 12/27/16 12/28/16 12/29/16 06:59 06:59 06:59 06:59 Intake Total 4903 3096 600 Output Total 3400 2400 800 Balance 1503 696 -200 Lab Results: Lab Results-Last 24 Hours 12/28/16 12/28/16 Range/Units 05:12 05:12 WBC 6.2 (4.0-10.5) K/mm3 RBC 3.48 L (4.1-5.4) M/mm3 Hgb 11.1 L (12.0-16.0) gm/dl Hct 33.8 L (35-47) % MCV 97.1 (78-100) fl MCH 31.8 (26-32) pg MCHC 32.8 (32-36) g/dl RDW 12.6 (11.5-14.0) % Plt Count 198 (150-450) K/mm3 MPV 10.5 H (6-9.5) fl Gran % 70.2 H (36.0-66.0) % Lymphocytes % 19.7 L (24.0-44.0) % Monocytes % 6.5 (0.0-12.0) % Eosinophils % 3.4 (0.00-5.0) % Basophils % 0.2 (0.0-0.4) % Basophils # 0.01 (0-0.4) Sodium 142 (136-145) mEq/L Potassium 3.6 (3.5-5.1) mEq/L Chloride 108 H (98-107) mEq/L Carbon Dioxide 27.1 (21-32) mEq/L Anion Gap 10.0 (5-15) MEQ/L BUN 3 L (9-20) mg/dL Creatinine 0.61 (0.55-1.30) mg/dl Estimated GFR > 60 ML/MIN Glucose 109 (70-110) MG/DL Calcium 8.7 (8.5-10.1) mg/dL Assessment/Plan (1) Acute pyelonephritis Current Visit: Yes Status: Acute Assessment & Plan: Stop meropenem as her urine culture grew E. coli that is susceptible to levofloxacin. Start levofloxacin 750 mg po daily. Rhododendron started and IV pain medication stopped but then the norco was not controlling her pain so IV dilaudid restarted prn. Code(s): N10 - ACUTE PYELONEPHRITIS (2) Tobacco abuse Current Visit: Yes Status: Acute Code(s): Z72.0 - TOBACCO USE (3) Illicit drug use Current Visit: Yes Status: Acute Code(s): F19.90 - OTHER PSYCHOACTIVE SUBSTANCE USE, UNSPECIFIED, UNCOMPLICATED
[2016-12-29] MEDS: TYLENOL 325 MG PO SCH ×2 (02:45→05:50)
[2016-12-29 05:24] LABS: BASOPHIL % 0.1 % (0.0-0.4); Eosinophil % 2.2 % (0.00-5.0); Lymphocytes % 12.7 % (24.0-44.0); Mean Cell Volume 94.6 fl (78-100); Mean Platelet Volume 10.2 fl (6-9.5); Platelet Count 262 K/mm3 (150-450); Red Blood Count 4.07 M/mm3 (4.1-5.4); Red Cell Distribution Width 12.3 % (11.5-14.0); White Blood Count 8.4 K/mm3 (4.0-10.5)
[2016-12-29 05:30] LABS: Mean Corpuscular Hemoglobin 32.1 pg (26-32)
[2016-12-29] MEDS: NORCO 5/325 MG PO PRN ×2 (05:45→10:11)
[2016-12-29 05:46] LABS: ANION GAP 11.7 MEQ/L (5-15); BLOOD UREA NITROGEN 5 mg/dL (9-20); CHLORIDE 103 mEq/L (98-107); Carbon Dioxide 29.4 mEq/L (21-32); Glucose 97 MG/DL (70-110); Potassium 3.9 mEq/L (3.5-5.1); SODIUM 140 mEq/L (136-145)
[2016-12-29] MEDS ORDERED: TYLENOL 325 MG PO PRN (09:16)
[2016-12-29] MEDS: Colace 100 MG PO SCH (10:10)
[2016-12-29] MEDS: Protonix 40MG Tablet PO SCH (10:10)
[2016-12-29] MEDS: Levofloxacin 250MG Tablet PO SCH (10:10)
[2016-12-29] MEDS: Levofloxacin 500 MG Tablet PO SCH (10:11)
--- NOTE | 2016-12-29 10:57 | PCM.DCORD ---
- Discharge Discharge Date: 12/29/16 Disposition: Home, Self-Care Condition: Fair Prescriptions: New Hydrocodone Bit/Acetaminophen [Hydrocodon-Acetaminophen 5-325] 1 each PO Q6H PRN #12 tablet PRN Reason: Pain Levofloxacin [Levaquin] 750 mg PO DAILY #3 tablet PANTOPRAZOLE 40 mg Tablet [Protonix 40MG Tablet] 40 mg PO DAILY #30 tab Follow up with: TITO DELACRUZ [ACTIVE STAFF] - 1 Week
[2016-12-29] MEDS: Dextrose 5% -0.45 NaCl 1000 ML 1,000 ML IV SCH (11:27)
[2016-12-29 11:48] VITALS: BP 124/76; PULSE 64; O2SAT 97
[2016-12-29] MEDS: Nicoderm CQ 21 MG TOP SCH (12:12)
--- NOTE | 2017-01-01 09:19 | DS ---
DISCHARGE DIAGNOSES: 1) ACUTE PYELONEPHRITIS OF THE LEFT SIDE. 2) TOBACCO ABUSE. 3) ILLICIT DRUG USE. DISCHARGE PHYSICAL EXAMINATION: VITALS: Temperature current 98.7F, temperature max 99.4F, heart rate 70 to 88, respiratory rate 14 to 19, blood pressure 124 to 157 over 72 to 86 currently 124/83. Oxygen saturation 94 to 96% on room air. GENERAL: The patient is a pleasant talkative lady sitting up in bed in no acute distress. CVS: She has a regular rate and rhythm. No murmurs, gallops or rubs. CHEST: Clear to auscultation bilaterally. No crackles or wheezes. ABDOMEN: Soft, nontender, nondistended. She has some mild left costovertebral angle tenderness. No costovertebral angle tenderness on the right. EXTREMITIES: No clubbing, cyanosis or edema. SKIN: Warm, dry and intact. HOSPITAL COURSE: 1) ACUTE LEFT PYELONEPHRITIS. She had an ultrasound done in the emergency department that was negative. UA and culture were obtained. The urine culture grew Escherichia coli that was susceptible to levofloxacin. I have had her Meropenem because she told me that she had history of resistance in her urine cultures in the past with long hospitalizations for pyelonephritis in the past. As soon as her urine culture came back switched her levofloxacin and will continue three more days of this at home to complete a total of seven days of antibiotic. The patient will follow up with me in the clinic this coming week. She was afebrile at the time of her discharge and unable to tolerate oral medications well. She has not had any vomiting for the past 24 hours. 2) TOBACCO ABUSE: The patient was counseled that she needs to quit. She was given a nicotine patch. 3) ILLICIT DRUG USE: The patient had admitted to using methamphetamine in the past but nothing currently DISCHARGE MEDICATIONS: Levofloxacin 750 mg p.o. daily for three days, hydrocodone 5/325 mg 1 tablet p.o. every six hours as needed #12 with no refills, Protonix 40 mg p.o. daily. DISPOSITION: The patient was discharged to home in fair condition.
== END 2016-12-29 14:25 | disposition home or self-care (01) | DRG 690 ==
LOC: ED 08:11 → MED SURG 10:41 → OBSVTOIN 12-26 08:52
PROVIDERS: ADMIT Internal Medicine; ATTEND Internal Medicine
DX: N10 Acute pyelonephritis (principal); Z72.0 Tobacco use; F19.90 Other psychoactive substance use, unspecified, uncomplicated; N80.9 Endometriosis, unspecified
CPT/HCPCS: 36000; 36415; 74178; 76770; 80048; 81000; 83605; 84703; 85025; 87040; 87077; 87086; 87186; 90732; 96360; 96365; 96367; 96374; 96375; 96376; 99285; G0378; J0696; J1170; J1200; J2405; J2550; A9270-GY